=== PATIENT | female | born 2000 | race Hispanic/Latino ===

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

== ENCOUNTER 2022-05-09 08:25 | Emergency (ER) | payer OTHER ==
[2022-05-09] MEDS ORDERED: Ketorolac Tromethamine 30 MG/ML VIAL ONE (09:22)
[2022-05-09] MEDS ORDERED: diphenhydrAMINE 50 MG/ML VIAL ONE (09:22)
[2022-05-09] MEDS ORDERED: Prochlorperazine 10 MG/2 ML VIAL IVP SCH (09:30)
== END 2022-05-09 10:19 | disposition home or self-care (01) ==
LOC: ERS 08:25
DX: G44.009 Cluster headache syndrome, unspecified, not intractable (principal); I10 Essential (primary) hypertension
CPT/HCPCS: 96374; 96375; J0780; J1200; J1885

== ENCOUNTER 2023-06-10 07:43 | Inpatient (IN) | payer OTHER ==
[2023-06-10] MEDS ORDERED: Scopolamine 1 mg/72 hour Patch ONE (07:59)
[2023-06-10] MEDS ORDERED: Sodium Chloride 0.9% 100 ML ONE (08:00)
[2023-06-10] MEDS ORDERED: Piperacillin/Tazobactam 3.375 GM VIAL ONE (08:00)
[2023-06-10] MEDS ORDERED: EPINEPHrine 1 MG/ML VIAL ONE (08:06)
[2023-06-10] MEDS ORDERED: Bupivacaine 0.25% HCL 30 ML VIAL ONE (08:07)
[2023-06-10] MEDS ORDERED: fentaNYL PF 100 MCG/2 ML SYRINGE ONE (08:12)
[2023-06-10] MEDS ORDERED: Midazolam HCl 2 mg/2 ml Vial ONE (08:12)
[2023-06-10] MEDS ORDERED: PROPOFOL 200 MG/20 ML VIAL ONE (08:18)
[2023-06-10] MEDS ORDERED: Rocuronium Bromide 10 MG/ML (10ML VIAL) ONE (08:18)
[2023-06-10] MEDS ORDERED: Ondansetron PF 4 MG/2 ML Vial ONE (08:18)
[2023-06-10] MEDS ORDERED: Dexamethasone 20 MG/5 ML VIAL ONE (08:18)
[2023-06-10] MEDS ORDERED: Lidocaine 1% PF 5 ML VIAL ONE (08:18)
[2023-06-10] MEDS ORDERED: SUGAMMADEX SODIUM 200 MG/2 ML VIAL ONE (08:47)
[2023-06-10] MEDS ORDERED: Ondansetron HCl/PF 4 MG/2 ML Vial IVP PRN (09:17)
[2023-06-10] MEDS ORDERED: Promethazine HCl 25 MG/ML VIAL IM PRN (09:17)
[2023-06-10] MEDS ORDERED: Meperidine HCl/PF 25 MG/ML VIAL SLOW IVP PRN (09:17)
[2023-06-10] MEDS ORDERED: HYDROmorphone 2 MG/ML VIAL SLOW IVP PRN (09:17)
[2023-06-10] MEDS ORDERED: HYDROcodone/Acetaminophen 5/325 mg Tablet ONE (10:56)
== END 2023-06-10 11:43 | disposition home or self-care (01) | DRG 399 ==
LOC: 2NO 07:43 → UNDOADMIN 07:43 → 2NO 08:20
PROVIDERS: ADMIT Specialist; ATTEND Specialist
PROC: 0DTJ4ZZ Resection of Appendix, Percutaneous Endoscopic Approach (ICD-10-PCS; principal; 2023-06-10)
PROC: 0UB94ZX Excision of Uterus, Percutaneous Endoscopic Approach, Diagnostic (ICD-10-PCS; 2023-06-10)
PROC: 0WBH4ZX Excision of Retroperitoneum, Percutaneous Endoscopic Approach, Diagnostic (ICD-10-PCS; 2023-06-10)
PROC: 0U5F4ZZ Destruction of Cul-de-sac, Percutaneous Endoscopic Approach (ICD-10-PCS; 2023-06-10)
PROC: 0U594ZZ Destruction of Uterus, Percutaneous Endoscopic Approach (ICD-10-PCS; 2023-06-10)
PROC: 0U5B4ZZ Destruction of Endometrium, Percutaneous Endoscopic Approach (ICD-10-PCS; 2023-06-10)
PROC: 0D5 Gastrointestinal System, Destruction (ICD-10-PCS; 2023-06-10)
PROC: 0D5 Gastrointestinal System, Destruction (ICD-10-PCS; 2023-06-10)
DX: K35.80 Unspecified acute appendicitis (principal); E03.9 Hypothyroidism, unspecified; F41.9 Anxiety disorder, unspecified; Z90.89 Acquired absence of other organs; N80.351 Endometriosis of the right pelvic sidewall, unspecified depth; N80.00 Endometriosis of the uterus, unspecified
CPT/HCPCS: 88304; 88305; A4314; A4649; C1713; J0171; J1100; J2250; J2405; J2543; J2704; J3490; S0020